=== PATIENT | female | born 1985 | race Caucasian/White ===

== ENCOUNTER 2017-01-27 08:02 | Emergency (ER) | payer SELFPAY ==
[~2017-01-27 08:02] MED LIST: BACTRIM DS TAB1 EAC2; BACTRIM DS TABL1 TAB PO; BACTROBAN22 GM TP; H PO; LEXAPRO10 MG PO; LORCET 5-325 M1 EAC1 PO; MOTRIN800 MG PO; NAPROXEN500 MG PO; NO HOME MEDICATION XX; ZYVOX600 MG PO
[2017-01-27] MEDS ORDERED: NO HOME MEDICATION XX (08:20)
[2017-01-27] MEDS ORDERED: BACTRIM DS TAB1 EAC2 PO (08:24)
[2017-01-27] MEDS ORDERED: MUPIROCIN22 G2 TP (08:24)
== END 2017-01-27 08:40 ==
LOC: EDMED 08:02
DX: L03.211 Cellulitis of face (principal); F17.200 Nicotine dependence, unspecified, uncomplicated